=== PATIENT | female | born 1980 | race American Indian/Alaskan Native ===

== ENCOUNTER 2017-05-26 12:52 | Emergency (ER) | payer OTHER ==
[2017-05-26] MEDS ORDERED: DUONEB *Not for PRN Use IH ONE ×2 (13:10→13:19)
[2017-05-26 14:46] LABS: Basophils % (Auto) 0.4 % (0.0-1.8); Eosinophils % (Auto) 4.9 % (0.0-4.3); Hematocrit 38.1 % (30.3-42.9); Mean Corpuscular HGB Conc 34 % (30-34); Mean Corpuscular Hemoglobin 31 pg (28-32); Mean Corpuscular Volume 91 fl (79-97); Platelet Count 257 K/mm3 (140-440); Red Blood Count 4.18 M/mm3 (3.65-5.03); Red Cell Distribution Width 15.4 % (13.2-15.2); White Blood Count 8.4 K/mm3 (4.5-11.0)
[2017-05-26 14:50] LABS: Anion Gap 16 mmol/L; BUN/Creatinine Ratio 17; Blood Urea Nitrogen 12 mg/dL (7-17); Calcium 9.3 mg/dL (8.4-10.2); Carbon Dioxide 26 mmol/L (22-30); Chloride 101.8 mmol/L (98-107); Glucose 119 mg/dL (65-100); Potassium 3.9 mmol/L (3.6-5.0); Sodium 140 mmol/L (137-145)
--- NOTE | 2017-05-26 17:39 | XRay Report ---
FINAL REPORT EXAM: XR CHEST ROUTINE 2V HISTORY: Shortness of breath TECHNIQUE: PA and lateral views of the chest PRIORS: None. FINDINGS: Lines, tubes, and devices: N/A Lungs and pleura: Trachea is normal in position. Lungs are clear of infiltrate, pleural effusion, vascular congestion, or pneumothorax. Cardiomediastinal silhouette: Cardiac and mediastinal silhouettes are unremarkable. Other: Bony structures are intact. IMPRESSION: No acute cardiopulmonary process seen.
[2017-05-26] MEDS ORDERED: DECADRON IM ONE (17:44)
[2017-05-26] MEDS ORDERED: PROVENTIL IH ONE (17:44)
[2017-05-26] MEDS ORDERED: TYLENOL PO ONE (17:45)
--- NOTE | 2017-05-26 17:52 | Emergency Department Report ---
- General Chief Complaint: Adult Asthma Stated Complaint: ASTHMA Source: patient Mode of arrival: Ambulatory Limitations: No Limitations - History of Present Illness Initial Comments: 36-year-old -Romanian female with a past medical history of asthma and eczema comes in today for asthma attack cough with productive green mucus since Sunday. Patient reports she's had a fever body aches green mucous sinus pressure and dizziness. She has been using her Ventolin inhaler without much relief. MD Complaint: cough, nasal congestion - Related Data Previous Rx's Medication Instructions Recorded Last Taken Type ALBUTEROL Inhaler [ProAir HFA 2 puff IH QID PRN #1 inhalation 05/26/17 Unknown Rx Inhaler] Albuterol Sulfate [Albuterol 0.63% 0.63 mg IH TID PRN #1 box 05/26/17 Unknown Rx NEBS] Cephalexin [Keflex] 500 mg PO BID 10 Days #20 capsule 05/26/17 Unknown Rx Nebulizer and Compressor [Easy Air 1 each MC PRN PRN #1 each 05/26/17 Unknown Rx Compressor Nebulizer] methylPREDNISolone [Medrol Dose 4 mg PO QAM #1 pack 05/26/17 Unknown Rx Quentin] Allergies Allergy/AdvReac Type Severity Reaction Status Date / Time No Known Allergies Allergy Verified 05/26/17 13:08 ED Review of Systems ROS: Stated complaint: ASTHMA Other details as noted in HPI ED Past Medical Hx - Past Medical History Hx Asthma: Yes - Social History Smoking Status: Never Smoker Substance Use Type: Alcohol - Medications Home Medications: Home Medications Medication Instructions Recorded Confirmed Last Taken Type ALBUTEROL Inhaler [ProAir HFA 2 puff IH QID PRN #1 inhalation 05/26/17 Unknown Rx Inhaler] Albuterol Sulfate [Albuterol 0.63% 0.63 mg IH TID PRN #1 box 05/26/17 Unknown Rx NEBS] Cephalexin [Keflex] 500 mg PO BID 10 Days #20 capsule 05/26/17 Unknown Rx Nebulizer and Compressor [Easy Air 1 each MC PRN PRN #1 each 05/26/17 Unknown Rx Compressor Nebulizer] methylPREDNISolone [Medrol Dose 4 mg PO QAM #1 pack 05/26/17 Unknown Rx Quentin] ED Physical Exam - General Limitations: No Limitations General appearance: alert, in no apparent distress - Head Head exam: Present: atraumatic, normocephalic - Eye Eye exam: Present: normal appearance - ENT ENT exam: Present: mucous membranes moist, TM's normal bilaterally - Expanded ENT Exam Expanded Throat exam: Positive: tonsillar erythema, tonsillomegaly - Neck Neck exam: Present: normal inspection - Respiratory Respiratory exam: Present: wheezes - Cardiovascular Cardiovascular Exam: Present: tachycardia - GI/Abdominal GI/Abdominal exam: Present: soft, normal bowel sounds - Extremities Exam Extremities exam: Present: normal inspection - Neurological Exam Neurological exam: Present: alert, oriented X3 - Psychiatric Psychiatric exam: Present: normal affect, normal mood - Skin Skin exam: Present: warm, dry, intact, normal color. Absent: rash ED Course Vital Signs 05/26/17 05/26/17 05/26/17 13:01 13:21 13:27 Temperature 98.1 F Pulse Rate 109 H Pulse Rate [ 101 H 95 H Anterior Bilateral Throughout] Respiratory 22 Rate Respiratory 16 16 Rate [Anterior Bilateral Throughout] Blood Pressure 115/70 O2 Sat by Pulse 100 Oximetry ED Medical Decision Making - Lab Data Result diagrams: 05/26/17 14:02 05/26/17 14:02 - Medical Decision Making Patient has been evaluated by this provider fast track. Orders have been placed for flu, strep. Chest x-ray performed in triage which is normal. Patient's been ordered dexamethasone 8 mg IM. Patient has been ordered albuterol 5 ML's inhalation. Patient has been ordered Tylenol 1 g. Patient will be reevaluated after neb treatment. Critical care attestation.: If time is entered above; I have spent that time in minutes in the direct care of this critically ill patient, excluding procedure time. ED Disposition Clinical Impression: Sinusitis Asthma attack Qualifiers: Asthma severity: moderate Asthma persistence: unspecified Qualified Code(s): J45.901 - Unspecified asthma with (acute) exacerbation Disposition: - TO HOME OR SELFCARE Is pt being admited?: No Does the pt Need Aspirin: No Condition: Stable Additional Instructions: Please take medication as prescribed. Follow up with her primary care provider for further evaluation. Prescriptions: ALBUTEROL Inhaler [ProAir HFA Inhaler] 2 puff IH QID PRN #1 inhalation PRN Reason: Shortness Of Breath Albuterol Sulfate [Albuterol 0.63% NEBS] 0.63 mg IH TID PRN #1 box PRN Reason: Wheezing Cephalexin [Keflex] 500 mg PO BID 10 Days #20 capsule methylPREDNISolone [Medrol Dose Quentin] 4 mg PO QAM #1 pack Nebulizer and Compressor [Easy Air Compressor Nebulizer] 1 each MC PRN PRN #1 each PRN Reason: Wheezing Referrals: PRIMARY CARE, [Primary Care Provider] - 3-5 Days Forms: Work/School Release Form(ED)
[2017-05-26 19:57] VITALS: BP 128/80
== END 2017-05-26 19:57 | disposition home or self-care (01) ==
LOC: ED 12:52
DX: J45.909 Unspecified asthma, uncomplicated (principal); J32.9 Chronic sinusitis, unspecified; F10.10 Alcohol abuse, uncomplicated
CPT/HCPCS: 36415; 71020; 80048; 84484; 85025; 87116; 87400; 87430; 94640; 96372; 99284; J1100

== ENCOUNTER 2017-10-13 03:03 | Emergency (ER) | payer OTHER ==
[2017-10-13] MEDS ORDERED: DUONEB *Not for PRN Use IH ONE ×3 (03:13→03:27)
[2017-10-13 03:26] VITALS: BP 113/80
== END 2017-10-13 06:35 | disposition left against medical advice (07) ==
LOC: ED 03:03
DX: R06.00 Dyspnea, unspecified (principal); Z53.21 Procedure and treatment not carried out due to patient leaving prior to being seen by health care provider

== ENCOUNTER 2018-12-09 18:15 | Emergency (ER) | payer OTHER ==
[2018-12-09] MEDS ORDERED: DUONEB *Not for PRN Use IH ONE ×3 (18:20→19:08)
[2018-12-09 18:24] VITALS: BP 108/85
[2018-12-09] MEDS ORDERED: DELTASONE PO ONE (18:55)
[2018-12-09] MEDS ORDERED: SOLU-Medrol IM ONE (19:08)
[2018-12-09] MEDS ORDERED: PROVENTIL IH ONE (19:38)
--- NOTE | 2018-12-09 20:14 | Emergency Department Report ---
ED Asthma HPI - General Chief Complaint: Adult Asthma Stated Complaint: ASTHMA ATTACK Time Seen by Provider: 12/09/18 19:31 Source: patient Mode of arrival: Ambulatory Limitations: No Limitations - History of Present Illness Initial Comments: 38-year-old female with a past medical history of asthma without previous intubations presents to the hospital complaints of sudden onset of wheezing and shortness of breath today. Patient states she's had dental pain for the last week and has several teeth pulled today and thinks that might have exacerbated h er symptoms. Patient denies cough, fever, calf tenderness, or leg edema. She complains of 5/10 dental pain. Patient is currently on narcotic pain medication and antibiotic for her teeth. Patient states she has been using her inhaler without relief. She states her nebulizer machine is broken. She does not have a primary care doctor - Related Data Previous Rx's Medication Instructions Recorded Last Taken Type ALBUTEROL Inhaler (OR & NICU) 2 puff IH QID PRN #1 inhalation 12/09/18 Unknown Rx [ProAir HFA Inhaler] Albuterol Sulfate [Albuterol 0.63% 0.63 mg IH TID PRN #1 box 12/09/18 Unknown Rx NEBS] Nebulizer and Compressor [Easy Air 1 each MC PRN PRN #1 each 12/09/18 Unknown Rx Compressor Nebulizer] predniSONE [Deltasone] 40 mg PO QDAY 5 Days tab 12/09/18 Unknown Rx Allergies Allergy/AdvReac Type Severity Reaction Status Date / Time No Known Allergies Allergy Verified 12/09/18 18:24 ED Review of Systems ROS: Stated complaint: ASTHMA ATTACK Other details as noted in HPI Comment: All other systems reviewed and negative ED Past Medical Hx - Past Medical History Previous Medical History?: Yes Hx Asthma: Yes - Surgical History Past Surgical History?: No - Social History Smoking Status: Never Smoker Substance Use Type: None - Medications Home Medications: Home Medications Medication Instructions Recorded Confirmed Last Taken Type ALBUTEROL Inhaler (OR & NICU) 2 puff IH QID PRN #1 inhalation 12/09/18 Unknown Rx [ProAir HFA Inhaler] Albuterol Sulfate [Albuterol 0.63% 0.63 mg IH TID PRN #1 box 12/09/18 Unknown Rx NEBS] Nebulizer and Compressor [Easy Air 1 each MC PRN PRN #1 each 12/09/18 Unknown Rx Compressor Nebulizer] predniSONE [Deltasone] 40 mg PO QDAY 5 Days tab 12/09/18 Unknown Rx ED Physical Exam - General Limitations: No Limitations - Other Other exam information: General: No limitations, patient is alert in no acute distress Head exam: Atraumatic, normocephalic Eyes exam: Normal appearance ENT: Moist mucous membrane Neck exam: Normal inspection, full range of motion, no meningismus nontender Respiratory exam: Bilateral wheezing, mild tachypnea, no accessory muscle use, nebulized treatment in progress Cardiovascular: Normal rate and rhythm, normal heart sounds Abdomen: Soft, nondistended, and nontender, with normal bowel sounds, no rebound, or guarding Extremity: Full range of motion normal inspection no deformity, no calf tenderness or edema Back: Normal Inspection, full range of motion, no tenderness Neurologic: Alert, oriented x3, cranial nerves intact, no motor or sensory deficit Psychiatric: normal affect, normal mood Skin: Warm, dry, intact ED Course Vital Signs 12/09/18 12/09/18 12/09/18 18:23 18:53 19:54 Temperature 97.8 F Pulse Rate 110 H Pulse Rate [ 84 Posterior Throughout] Respiratory 24 23 Rate Respiratory 18 Rate [Posterior Throughout] Blood Pressure 108/85 O2 Sat by Pulse 99 Oximetry ED Medical Decision Making - Radiology Data Radiology results: report reviewed PROCEDURE: XR CHEST ROUTINE 2V TECHNIQUE: PA and lateral chest radiographs were obtained. HISTORY: Asthma COMPARISONS: Chest x-ray 05/26/2017. FINDINGS: Heart: Normal size. Mediastinum/Vessels: Normal. Lungs/Pleural space: Clear.. Bony thorax: No acute osseous abnormality. IMPRESSION: No evidence of acute cardiac or pulmonary process.. - Medical Decision Making After treatment in IM steroids and bronchodilators his wheezing has improved and she feels better. Chest x-ray negative she'll be discharged with treatment. - Differential Diagnosis pneumonia, asthma exacerbation Critical Care Time: No Critical care attestation.: If time is entered above; I have spent that time in minutes in the direct care of this critically ill patient, excluding procedure time. ED Disposition Clinical Impression: Asthma exacerbation Disposition: DC-01 TO HOME OR SELFCARE Is pt being admited?: No Does the pt Need Aspirin: No Condition: Stable Instructions: Asthma (ED) Additional Instructions: Take the medication as prescribed. Follow up with your doctor or the clinic/doctor provided. Return if symptoms worsen as indicated by your discharge instructions Prescriptions: Albuterol Sulfate [Albuterol 0.63% NEBS] 0.63 mg IH TID PRN #1 box PRN Reason: Wheezing predniSONE [Deltasone] 40 mg PO QDAY 5 Days tab Nebulizer and Compressor [Easy Air Compressor Nebulizer] 1 each MC PRN PRN #1 each PRN Reason: Wheezing ALBUTEROL Inhaler (OR & NICU) [ProAir HFA Inhaler] 2 puff IH QID PRN #1 inhalation PRN Reason: Shortness Of Breath Referrals: [facility] [Provider Group] - 3-5 Days ROLANDO OROZCO MD [Staff Physician] - 3-5 Days Time of Disposition: 21:25
--- NOTE | 2018-12-09 20:55 | XRay Report ---
PROCEDURE: XR CHEST ROUTINE 2V TECHNIQUE: PA and lateral chest radiographs were obtained. HISTORY: Asthma COMPARISONS: Chest x-ray 05/26/2017. FINDINGS: Heart: Normal size. Mediastinum/Vessels: Normal. Lungs/Pleural space: Clear.. Bony thorax: No acute osseous abnormality. IMPRESSION: No evidence of acute cardiac or pulmonary process.. This document is electronically signed by Alonso Bonner MD., December 09 2018 08:53:50 PM ET
== END 2018-12-09 21:36 | disposition home or self-care (01) ==
LOC: ED 18:15
DX: J45.901 Unspecified asthma with (acute) exacerbation (principal)
CPT/HCPCS: 71046; 94640; 96372; 99284; J2930; J7512

== ENCOUNTER 2021-05-01 01:25 | Emergency (ER) | payer OTHER ==
[2021-05-01] MEDS ORDERED: IPRATROPIUM 0.02% NEBU 2.5 ML IH ONE (01:41)
[2021-05-01] MEDS ORDERED: ALBUTEROL 2.5 MG/3 ML NEBU IH ONE (01:41)
--- NOTE | 2021-05-01 01:45 | Emergency Department Report ---
ED Asthma HPI - General Chief Complaint: Adult Asthma Stated Complaint: SHORTNESS OF BREATH PUI?: No Time Seen by Provider: 05/01/21 01:37 Source: patient Mode of arrival: Ambulatory Limitations: No Limitations - History of Present Illness Initial Comments: Chief complaint: "An attack" HPI: This is a 40-year-old female with history of persistent asthma who presents with "asthma attack". She felt tightness chest with shortness of breath and wheezing. Her albuterol nebulizer machine malfunctioned due to holes in the tubing. She took prednisone 60 mg prior to arrival. Her credit and collections representative Dr. Wong gives her prednisone to use as needed for exacerbation. She has not vaccinated against COVID-19. She denies fever, cough, vomiting. Medications include a greene-colored inhaler and a red-colored inhaler MD Complaint: "asthma attack", shortness of breath, wheezing -: Gradual, hour(s) (1 hour prior to arrival) Asthma History: childhood onset (Asthma onset age 3), history of frequent attac, history of prior ED visit, followed by specialist (Follow-up by Dr. Wong), other (No history of intubation) Severity: moderate Context: other (Albuterol nebulizer machine not functioning) Treatments Prior to Arrival: other (Prednisone) - Related Data Previous Rx's Medication Instructions Recorded Last Taken Type Albuterol Mdi (or & Nicu Only) 2 puff IH QID PRN #1 inhalation 12/09/18 Unknown Rx [ProAir HFA Inhaler] Albuterol Sulfate [Albuterol 0.63% 0.63 mg IH TID PRN #1 box 12/09/18 Unknown Rx NEBS] Nebulizer and Compressor [Easy Air 1 each MC PRN PRN #1 each 12/09/18 Unknown Rx Compressor Nebulizer] predniSONE [Deltasone] 40 mg PO QDAY 5 Days tab 12/09/18 Unknown Rx Albuterol Mdi (or & Nicu Only) 2 puff IH QID PRN #8.5 gram 05/01/21 Unknown Rx [ProAir HFA Inhaler] Allergies Allergy/AdvReac Type Severity Reaction Status Date / Time No Known Allergies Allergy Verified 12/09/18 18:24 ED Review of Systems ROS: Stated complaint: SHORTNESS OF BREATH Other details as noted in HPI Comment: All other systems reviewed and negative Constitutional: denies: chills, fever, malaise Respiratory: shortness of breath, wheezing. denies: cough Cardiovascular: denies: chest pain Gastrointestinal: denies: abdominal pain, nausea, vomiting ED Past Medical Hx - Past Medical History Previous Medical History?: Yes Hx Asthma: Yes - Surgical History Past Surgical History?: No - Social History Smoking Status: Former Smoker Substance Use Type: None - Medications Home Medications: Home Medications Medication Instructions Recorded Confirmed Last Taken Type Albuterol Mdi (or & Nicu Only) 2 puff IH QID PRN #1 inhalation 12/09/18 Unknown Rx [ProAir HFA Inhaler] Albuterol Sulfate [Albuterol 0.63% 0.63 mg IH TID PRN #1 box 12/09/18 Unknown Rx NEBS] Nebulizer and Compressor [Easy Air 1 each MC PRN PRN #1 each 12/09/18 Unknown Rx Compressor Nebulizer] predniSONE [Deltasone] 40 mg PO QDAY 5 Days tab 12/09/18 Unknown Rx Albuterol Mdi (or & Nicu Only) 2 puff IH QID PRN #8.5 gram 05/01/21 Unknown Rx [ProAir HFA Inhaler] ED Physical Exam - General Limitations: No Limitations General appearance: alert, other (Speaking for sentences with mild effort) - Head Head exam: Present: atraumatic, normocephalic - Eye Eye exam: Present: normal appearance - ENT ENT exam: Present: mucous membranes moist - Neck Neck exam: Present: normal inspection, full ROM - Respiratory Respiratory exam: Present: wheezes, prolonged expiratory, other (Expiratory wheezing). Absent: rales, rhonchi - Cardiovascular Cardiovascular Exam: Present: regular rate, normal rhythm. Absent: systolic murmur, diastolic murmur, rubs, gallop - GI/Abdominal GI/Abdominal exam: Present: soft, normal bowel sounds. Absent: distended, tenderness, guarding, rebound - Extremities Exam Extremities exam: Present: normal inspection - Neurological Exam Neurological exam: Present: alert, oriented X3 - Psychiatric Psychiatric exam: Present: normal affect, normal mood - Skin Skin exam: Present: warm, dry, intact, normal color. Absent: rash ED Course Vital Signs 05/01/21 05/01/21 05/01/21 01:32 01:50 02:01 Temperature 97.9 F Pulse Rate 93 H 88 Pulse Rate [ 93 H Bilateral Throughout] Respiratory 28 H 20 Rate Respiratory 20 Rate [Bilateral Throughout] Blood Pressure 121/74 Blood Pressure 124/74 [Left] O2 Sat by Pulse 99 98 Oximetry 05/01/21 05/01/21 05/01/21 04:19 04:51 05:03 Temperature Pulse Rate 95 H 90 87 Pulse Rate [ Bilateral Throughout] Respiratory 18 20 18 Rate Respiratory Rate [Bilateral Throughout] Blood Pressure Blood Pressure 128/70 133/66 130/68 [Left] O2 Sat by Pulse 98 97 98 Oximetry ED Medical Decision Making - Medical Decision Making Acute asthma exacerbation: Patient treated herself with 60 mg of prednisone at home. She received albuterol 10 mg Atrovent 1 mg in emergency department. She has clear breath sounds on exam but good air movement on reassessment. Oxygen saturation 100%. Patient received prescription for albuterol MDI according to her request. Critical care attestation.: If time is entered above; I have spent that time in minutes in the direct care of this critically ill patient, excluding procedure time. ED Disposition Clinical Impression: Asthma exacerbation Disposition: 01 HOME / SELF CARE / HOMELESS Is pt being admited?: No Does the pt Need Aspirin: No Condition: Stable Instructions: Asthma Attack Prescriptions: Albuterol Mdi (or & Nicu Only) [ProAir HFA Inhaler] 2 puff IH QID PRN #8.5 gram PRN Reason: Shortness Of Breath Referrals: PARDEEP WONG MD [Staff Physician] - 3-5 Days
[2021-05-01 05:03] VITALS: BP 130/68
[2021-05-01] MEDS ORDERED: KETOROLAC 30 MG/1 ML INJ IM ONE (05:32)
== END 2021-05-01 05:47 | disposition home or self-care (01) ==
LOC: ED 01:25
DX: J45.901 Unspecified asthma with (acute) exacerbation (principal); Z87.891 Personal history of nicotine dependence; Z79.899 Other long term (current) drug therapy
CPT/HCPCS: 94640; 94644; 99282